=== PATIENT | female | born 1990 ===

== ENCOUNTER 2018-06-01 20:50 | Emergency (ER) | payer BC ==
[2018-06-01 21:00] VITALS: BP 126/74
[2018-06-01] MEDS ORDERED: Sodium Chloride 0.9% 1,000 ML IV STA (22:02)
[2018-06-01] MEDS ORDERED: Albuterol-Ipratrop 3 mg / 0.5 (3 ml) UD IH STA ×2 (22:02)
--- NOTE | 2018-06-01 22:06 | ED PDOC ---
HPI: CCC, URI, Sore Throat Time Seen by Provider: 06/01/18 21:52 Chief Complaint (Nursing): Cough, Cold, Congestion Chief Complaint (Provider): cough, congestion History Per: Patient History/Exam Limitations: no limitations Onset/Duration Of Symptoms: Days (4) Current Symptoms Are (Timing): Still Present Associated Symptoms: Chills, Cough Additional Complaint(s): 28 y/o female presents for evaluation of cough/congestion x 4 days. Patient sta hilary symptoms started as nasal congestion, productive cough, chills. Patient states now just with dry cough and upper back pain. Patient was evaluated at [facility] today and had a chest xray that showed bilateral pneumonia so was given a dose of Levaquin and Prednisone in office as well as prescriptions to go home with. Patient presents to ED stating cough still persisting. Denies fever, headache, dizziness, extremity numbness/weakness, chest pain, shortness of breath, palpitations, abdominal pain, leg pain/swelling, recent travel, sick contacts. Past Medical History Reviewed: Historical Data, Nursing Documentation, Vital Signs Vital Signs: Last Vital Signs Temp 98.3 F 06/01/18 20:57 Pulse 94 H 06/01/18 20:57 Resp 16 06/01/18 20:57 BP 126/74 06/01/18 20:57 Pulse Ox 98 06/01/18 20:57 - Medical History PMH: No Chronic Diseases - Surgical History Surgical History: No Surg Hx - Family History Family History: States: No Known Family Hx - Home Medications Home Medications: Ambulatory Orders Medication Instructions Recorded Albuterol 0.083% [Albuterol 1 vial IH Q6 PRN #30 vial 06/01/18 Sulfate 3 Ml] Albuterol HFA [Ventolin HFA 90 1 puff IH Q4 PRN #1 inh 06/01/18 mcg/actuation (8 g)] Ibuprofen [Motrin Tab] 1 tab PO Q6 PRN #15 tab 06/01/18 Mask, Face [Nebulizer Aerosol Mask 1 dev INH PRN PRN #1 dev 06/01/18 Adult] Nebulizer [Compact Compressor 1 dev XX Q6 PRN #1 dev 06/01/18 Nebulizer] Promethazine HCl/Codeine 5 ml PO Q8 PRN #50 ml 06/01/18 [Promethazine-Codeine Syrup] - Allergies Allergies/Adverse Reactions: Allergies Allergy/AdvReac Type Severity Reaction Status Date / Time cinnamon Allergy ITCHING Verified 06/01/18 20:57 Review of Systems ROS Statement: Except As Marked, All Systems Reviewed And Found Negative Respiratory: Positive for: Cough Physical Exam - Reviewed Nursing Documentation Reviewed: Yes Vital Signs Reviewed: Yes - Physical Exam Appears: Positive for: Well, Non-toxic, No Acute Distress Head Exam: Positive for: ATRAUMATIC, NORMAL INSPECTION, NORMOCEPHALIC Skin: Positive for: Normal Color Eye Exam: Positive for: Normal appearance ENT: Positive for: Normal ENT Inspection Cardiovascular/Chest: Positive for: Regular Rate, Rhythm Respiratory: Positive for: Normal Breath Sounds Gastrointestinal/Abdominal: Positive for: Normal Exam Back: Positive for: Normal Inspection Extremity: Positive for: Normal ROM Neurologic/Psych: Positive for: Alert, Oriented (x3) - Laboratory Results Result Diagrams: 06/01/18 22:56 06/01/18 22:56 - ECG ECG: Positive for: Viewed By Me O2 Sat by Pulse Oximetry: 98 - Progress ED Course And Treament: labs, flu, IV fluids, IV toradol, duonebs On re-eval, patient states she is feeling better. Vitals remain stable Patient educated on findings, advised to continue Levaquin, Prednisone as previously prescribed Rx albuteorl HFA, albuterol neb solution, Promethazine with codeine, ibuprofen provided Advised follow up PMD within 2-3 days Rest. Fluids Return precautions given Disposition - Clinical Impression Clinical Impression: Pneumonia - Patient ED Disposition Is Patient to be Admitted: No Counseled Patient/Family Regarding: Studies Performed, Diagnosis, Need For Followup, Rx Given - Disposition Referrals: [facility] [Outside] Disposition: Routine/Home Disposition Time: 23:57 Condition: IMPROVED Prescriptions: Albuterol 0.083% [Albuterol Sulfate 3 Ml] 1 vial IH Q6 PRN #30 vial PRN Reason: Cough Albuterol HFA [Ventolin HFA 90 mcg/actuation (8 g)] 1 puff IH Q4 PRN #1 inh PRN Reason: Shortness Of Breath Ibuprofen [Motrin Tab] 1 tab PO Q6 PRN #15 tab PRN Reason: Pain, Moderate (4-7) Mask, Face [Nebulizer Aerosol Mask Adult] 1 dev INH PRN PRN #1 dev PRN Reason: Wheezing Nebulizer [Compact Compressor Nebulizer] 1 dev XX Q6 PRN #1 dev PRN Reason: Wheezing Promethazine HCl/Codeine [Promethazine-Codeine Syrup] 5 ml PO Q8 PRN #50 ml PRN Reason: Cough Instructions: Pneumonia in Adults Forms: [facility] ([place])
[2018-06-01] MEDS ORDERED: Albuterol-Ipratrop 3 mg / 0.5 (3 ml) UD ONE ×2 (23:01→23:02)
[2018-06-01 23:14] LABS: BASO % 0.1 % (0.0-2.0); HEMOGLOBIN 14.5 g/dL (12.0-16.0); LYMPH # 0.5 K/uL (1.0-4.3); LYMPH % 4.6 % (20.0-40.0); MEAN CELL VOLUME 87.3 fl (81.0-99.0); MEAN CORPUSCULAR HEMOGLOBIN 29.6 pg (27.0-31.0); MEAN CORPUSCULAR HGB CONC 33.9 g/dL (33.0-37.0); MEAN PLATELET VOLUME 10.3 fl (7.2-11.7); MONO # 0.1 K/uL (0.0-0.8); MONO % 1.2 % (0.0-10.0); NEUT # 9.7 K/uL (1.8-7.0); NEUT % 94.1 % (50.0-75.0); PLATELET COUNT 230 K/uL (130-400); RED CELL DISTRIBUTION WIDTH 14.6 % (11.5-14.5); WHITE BLOOD COUNT 10.3 K/uL (4.8-10.8)
[2018-06-01 23:16] LABS: VENOUS BLOOD GAS BASE EXCESS -1.5 mmol/L (0.0-2.0); VENOUS BLOOD GAS PCO2 44 mmHg (40-60); VENOUS BLOOD GAS PO2 24 mm/Hg (30-55); VENOUS BLOOD PH 7.35 (7.32-7.43)
[2018-06-01 23:20] LABS: ALB/GLOB RATIO 1.1 (1.0-2.1); ALBUMIN 4.5 g/dL (3.5-5.0); ALT/SGPT 34 U/L (9-52); AST/SGOT 33 U/L (14-36); BLOOD UREA NITROGEN 11 mg/dl (7-17); CALCIUM 9.3 mg/dL (8.4-10.2); GFR NON-AFRICAN AMERICAN > 60
[2018-06-02] MEDS ORDERED: Promethazine/Cod 6.25mg-10mg/5ml Syr UD PO STA (00:01)
[2018-06-02] MEDS ORDERED: Promethazine/Cod 6.25mg-10mg/5ml Syr UD ONE (00:07)
[2018-06-02 00:12] VITALS: PULSE 103; RESP 20; TEMP 98.8; O2SAT 99
[2018-06-02 00:23] LABS: BANDS 2 % (0-2); LYMPHOCYTE 2 % (20-50); MONOCYTE 1 % (0-10); NEUTROPHIL 95 % (42-75); TOTAL CELLS COUNTED 100
[2018-06-02 00:24] LABS: PLATELET ESTIMATE NORMAL (NORMAL)
[2018-06-02 00:25] LABS: HELMET CELLS SLIGHT; OVALOCYTES SLIGHT; TEARDROP CELLS SLIGHT
== END 2018-06-02 00:30 | disposition home or self-care (01) ==
LOC: H.ER 20:50
DX: J18.9 Pneumonia, unspecified organism (principal); Z79.899 Other long term (current) drug therapy
CPT/HCPCS: 80053; 81025; 82803; 85025; 87040; 87804; 94150; 94640; 96374; 99284; J1885; J7030